=== PATIENT | male | born 1950 | race Caucasian/White ===

== ENCOUNTER 2023-08-21 10:53 | Outpatient (CLI) | payer MEDICARE, BC, SELFPAY ==
[2023-08-21 14:19] LABS: Appearance Urine Clear (Clear); Color Urine Yellow (Yellow)
[2023-08-21 14:20] LABS: Bilirubin Urine Negative (Negative); Blood Urine Negative (Negative); Glucose Urine Negative (Negative); Ketones Urine Negative (Negative); Leukocyte Esterase Urine Negative (Negative); Nitrite Urine Negative (Negative); Protein Urine Negative (Negative); Urobilinogen Urine 0.2 (0.2-1.0)
== END 2023-08-21 10:54 | disposition home or self-care (01) ==
PROVIDERS: PCP Nurse Practitioner Family; Visit Provider Nurse Practitioner Family
DX: Z00.00 Encounter for general adult medical examination without abnormal findings (principal); R14.0 Abdominal distension (gaseous); I10 Essential (primary) hypertension; E78.5 Hyperlipidemia, unspecified; R53.83 Other fatigue; R73.03 Prediabetes; E66.9 Obesity, unspecified; R25.1 Tremor, unspecified; Z12.5 Encounter for screening for malignant neoplasm of prostate; R06.02 Shortness of breath; I45.2 Bifascicular block; R94.31 Abnormal electrocardiogram [ECG] [EKG]
CPT/HCPCS: 80053; 80061; 81001; 81003; 82607; 83880; 84153; 84443; 85025

== ENCOUNTER 2023-09-05 08:07 | Outpatient (CLI) | payer MEDICARE, BC, SELFPAY ==
[2023-09-05] MEDS: SODIUM CHLORIDE 0.9 % (FLUSH) 10 ML SYRINGE IVF (09:16)
[2023-09-05] MEDS: REGADENOSON 0.4 MG/5 ML SYRINGE IVP (09:16)
[2023-09-05 10:20] VITALS: BP 151/84; PULSE 89
--- NOTE | 2023-09-05 13:24 | W.PM.STED ---
Stress Test Note Date Date of test: 09/05/23 Providers Primary care provider: Lisa Baker Stress test physician: Tera Miguel Stress Test Note Stress test ordered: Lexiscan Indication for test: Dyspnea Stress test medicine: Lexiscan Results discussion: Patient is a very nice 73-year-old gentleman who presents for the above test. Cardiac stress test medical history form is reviewed entirely. After discussion the risks benefits and side effects he would like to proceed pretest EKG shows normal sinus rhythm with a ventricular rate of 69, right bundle branch block configuration is noted, there is some diffuse ST wave changes, primarily inferiorly, with T-wave flattening noted. Blood pressure is 154/84. Standard Lexiscan protocol is employed, over the normal time course of 5 minutes. Maximum heart rate was 111, maximum blood pressure 172/97, he was asymptomatic during the test. There is no appreciable change in his baseline EKG. Impression: Negative of electrographic portion of Lexiscan, symptomatic negative Follow up suggested: Await nuclear imaging results which will be reviewed by nuclear Medicine/Cardiology. Patient recovered normally, and left this testing facility in excellent condition, there were no complications
== END 2023-09-05 08:08 | disposition home or self-care (01) ==
LOC: STRESS 08:09
PROVIDERS: PCP Nurse Practitioner Family; Visit Provider Family Medicine
DX: R06.02 Shortness of breath (principal)
CPT/HCPCS: 78452; 93016; 93017; A9500; J2785

== ENCOUNTER 2024-09-17 09:40 | Outpatient (CLI) | payer MEDICARE, BC, SELFPAY | END 2024-09-17 09:41 | disposition home or self-care (01) | PROVIDERS: PCP Nurse Practitioner Family; Visit Provider Nurse Practitioner Family | DX: I10 Essential (primary) hypertension (principal); E78.5 Hyperlipidemia, unspecified; Z12.5 Encounter for screening for malignant neoplasm of prostate; R73.03 Prediabetes | CPT/HCPCS: 80053; 80061; 83036; 85027; G0103 ==

== ENCOUNTER 2024-09-24 09:40 | Outpatient (CLI) | payer MEDICARE, BC, SELFPAY ==
--- NOTE | 2024-09-24 10:00 | CRLHL7_ITS ---
For Patients: As a result of the Cures Act, medical imaging exams and procedure reports are released immediately into your electronic medical record. You may view this report before your referring provider. If you have questions, please contact your health care provider. TECHNIQUE: Ultrasound of the abdominal aorta. Grayscale and color doppler images. INDICATION: Screening for AAA. FINDINGS: Proximal abdominal aorta: 2.6 cm. Middle aorta: 2.1 cm. Distal aorta: 2.0 cm. Right iliac artery: 1.3 cm. Left iliac artery: 1.5 cm. IMPRESSION: No evidence for abdominal aortic aneurysm. Dictated by Ponce Gonzalez MD @ 09/24/2024 1:02:24 PM (Electronically Signed)
== END 2024-09-24 09:41 | disposition home or self-care (01) ==
LOC: US 09:43
PROVIDERS: PCP Nurse Practitioner Family; Visit Provider Nurse Practitioner Family
DX: Z13.6 Encounter for screening for cardiovascular disorders (principal)
CPT/HCPCS: 76706

== ENCOUNTER 2024-10-29 07:43 | Outpatient (CLI) | payer MEDICARE, BC, SELFPAY ==
--- NOTE | 2024-10-29 09:07 | W.ANESCHARGE ---
Anesthesia Charges Start Date/Time Anesthesia Start Date: 10/29/24 Anesthesia Start Time: 08:37 Stop Date/Time Anesthesia Stop Date: 10/29/24 Anesthesia Stop Time: 09:04 Coding CPT Codes CPT Codes: CHRIS LWR INTST NDSC NOS - 65785 ([id number]) P2 - PATIENT W/MILD SYST DISEASE, QK - ACCOUNTS RECEIVABLE SPECIALIST 2-4 CNCRNT ANES PROC, QX - PRINTING ASSISTANT SVC W/ MD MED DIRECTION
--- NOTE | 2024-10-29 09:07 | W.ANESCHARGE ---
Anesthesia Charges Start Date/Time Anesthesia Start Date: 10/29/24 Anesthesia Start Time: 08:37 Stop Date/Time Anesthesia Stop Date: 10/29/24 Anesthesia Stop Time: 09:04 Summary Extremes of Age - Over 70 or under 1: MDA Coding CPT Codes CPT Codes: CHRIS LWR INTST NDSC NOS - 82539 ([id number]) QX - BUTTON BROACHER SVC W/ MD MED DIRECTION, QK - REPRODUCTION SPECIALIST 2-4 CNCRNT ANES PROC, P2 - PATIENT W/MILD SYST DISEASE Additional Codes: Summary - Extremes of Age - Over 70 or under 1: MDA ([id number])
== END 2024-10-29 07:44 | disposition home or self-care (01) ==
LOC: OP CLINIC 07:44
PROVIDERS: PCP Nurse Practitioner Family; Visit Provider Surgery
DX: Z12.11 Encounter for screening for malignant neoplasm of colon (principal); D12.0 Benign neoplasm of cecum; D12.2 Benign neoplasm of ascending colon
CPT/HCPCS: 00811; 45385; 88305; 99100; J2704